=== PATIENT | male | born 1955 | race African-American/Black ===

== ENCOUNTER → 2017-12-06 | Outpatient (CLI) | payer OTHER ==
--- NOTE | 2017-12-06 11:54 | XR ---
EXAMINATION TYPE: XR lumbosacral spine min 4V DATE OF EXAM: 12/06/2017 COMPARISON: NONE HISTORY: 61-year-old male low back pain TECHNIQUE: 5 views FINDINGS: Transitional lumbosacral segment which will be denoted as a sacralized L5. Vertebral body heights are preserved and alignment is maintained. Mild facet arthropathy lower lumbar spine. Mild degenerative disc disease and endplate spondylosis upper lumbar spine. No pars interarticularis defect. IMPRESSION: Transitional lumbosacral segment denoted as a sacralized L5. Mild degenerative disc disease upper lum bar spine and mild facet arthropathy lower lumbar spine. No vertebral compression collapse or malalig nment.
== END | disposition home or self-care (01) ==
LOC: RADXRMAIN 10:40
PROVIDERS: ATTEND Family Medicine
DX: M51.36 Other intervertebral disc degeneration, lumbar region (principal); M46.96 Unspecified inflammatory spondylopathy, lumbar region; Q76.49 Other congenital malformations of spine, not associated with scoliosis
CPT/HCPCS: 72110

== ENCOUNTER 2021-04-10 01:00 | Emergency (ER) | payer OTHER ==
[2021-04-10] MEDS ORDERED: CALCIUM CARB-MAG CARB-FOLIC 1 EACH TAB PO STA (01:21)
[2021-04-10 01:36] VITALS: BP 170/76; PULSE 78; RESP 15; TEMP 98.7
--- NOTE | 2021-04-10 01:40 | ED ---
Alcohol HPI - General Stated Complaint: ETOH Time Seen by Provider: 04/10/21 01:03 Source: patient Mode of arrival: EMS - History of Present Illness Initial Comments: This patient is 65-year-old man who arrives to be evaluated for right leg weakness. The patient states that he had been walking a little over 4 blocks when he felt like his legs were getting weak and had to sit down on the curb. Patient was observed and bystanders called EMS. EMS brought the patient to be evaluated for what they suspected was intoxication and generalized weakness. The patient states that he had been drinking tonight probably for 5 beers. The patient states this is not the first time he had become weak and she was told by that his magnesium was low. Patient denies any focal weakness. Denies pain. He states that when this has happened before it just lasts for a few minutes. Patient states she is feeling better now. MD Complaint: alcohol intoxication Last Drink: just [employer] -: hour(s) Recent Trauma: No Associated Symptoms: other Treatments Prior to Arrival: none Chronic Alcohol Use: Yes - Related Data Allergies Allergy/AdvReac Type Severity Reaction Status Date / Time Penicillins Allergy Unknown Verified 04/10/21 01:37 Review of Systems ROS Statement: Those systems with pertinent positive or pertinent negative responses have been documented in the HPI. ROS Other: All systems not noted in ROS Statement are negative. Constitutional: Reports: as per HPI, weakness. Denies: fever, chills Respiratory: Denies: cough, dyspnea Cardiovascular: Denies: chest pain, palpitations, edema, syncope Gastrointestinal: Denies: abdominal pain, vomiting, diarrhea Genitourinary: Denies: dysuria, hematuria Musculoskeletal: Denies: back pain Skin: Denies: rash Neurological: Denies: headache, weakness, numbness, paresthesias General Exam Limitations: no limitations General appearance: alert, in no apparent distress Head exam: Present: atraumatic, normocephalic Eye exam: Present: normal appearance, nystagmus. Absent: scleral icterus, conjunctival injection Respiratory exam: Present: normal lung sounds bilaterally. Absent: respiratory distress, wheezes, rales, rhonchi, stridor Cardiovascular Exam: Present: regular rate, normal rhythm, normal heart sounds. Absent: systolic murmur, diastolic murmur, rubs, gallop GI/Abdominal exam: Present: soft. Absent: distended, tenderness, guarding, rebound, rigid Extremities exam: Present: normal inspection, normal capillary refill. Absent: pedal edema, calf tenderness Back exam: Present: normal inspection Neurological exam: Present: alert. Absent: motor sensory deficit Skin exam: Present: warm, dry, intact, normal color. Absent: rash Course Vital Signs 04/10/21 01:27 Temperature 98.7 F Pulse Rate 78 Respiratory 15 Rate Blood Pressure 170/76 O2 Sat by Pulse 100 Oximetry Disposition Clinical Impression: Alcoholic intoxication Disposition: HOME SELF-CARE Condition: Good Instructions (If sedation given, give patient instructions): Weakness (ED) Is patient prescribed a controlled substance at d/c from ED?: No Referrals: None,Stated [Primary Care Provider] - 1-2 days
== END 2021-04-10 02:20 | disposition home or self-care (01) ==
LOC: EC 01:00
DX: F10.129 Alcohol abuse with intoxication, unspecified (principal); Z88.0 Allergy status to penicillin
CPT/HCPCS: 99284